=== PATIENT | female | born 1985 | race African-American/Black ===

== ENCOUNTER 2020-06-13 18:22 | Emergency (ER) | payer MEDICAID ==
[~2020-06-13] VITALS: Ht 165.1 cm; Wt 91.0 kg
[2020-06-13 19:10] LABS: CHLORIDE 109 mEq/L (98-107)
[2020-06-13 19:17] LABS: BASOPHILS % 0.4 % (0.0-2.0); EOSINOPHILS % 0.9 % (0.0-5.0); HEMATOCRIT. 35.6 % (36.0-48.0); HEMOGLOBIN. 12.3 g/dL (12.0-16.0); LYMPHOCYTES % 21.5 % (20.0-50.0); MEAN CORPUSCULAR HEMOGLOBIN 33.1 pg (28.0-32.0); MEAN CORPUSCULAR VOLUME 95.5 fL (81.0-99.0); MEAN PLATELET VOLUME 7.9 fl (7.4-10.4); MONOCYTES % 6.2 % (2.0-8.0); PLATELET 310 x1000/uL (130-400); RED BLOOD CELL COUNT 3.73 mill/uL (4.2-5.4); RED CELL DISTRIBUTION WIDTH 12.7 % (11.6-14.6)
[2020-06-13 19:21] LABS: B-HCG QUANTITATIVE 812 mIU/mL (<3)
[2020-06-13] MEDS ORDERED: SODIUM CHLORIDE 0.9% 1,000 ML IV ONE (19:30)
[2020-06-13] MEDS ORDERED: MORPHINE SULFATE 4 MG/ML CPJ (NOT FOR IM USE) IV ONE (19:30)
[2020-06-13] MEDS ORDERED: CEFTRIAXONE 1 G PREMIX 50 ML IV ONE (19:30)
[2020-06-13 20:24] LABS: *BENZODIAZEPINES SCREEN URINE NEGATIVE (NEGATIVE); *COCAINE SCREEN URINE NEGATIVE (NEGATIVE); METHADONE URINE SCREEN NEGATIVE (NEGATIVE); OPIATES URINE SCREEN NEGATIVE (NEGATIVE); PHENCYCLIDINE URINE SCREEN NEGATIVE (NEGATIVE)
[2020-06-13 20:26] LABS: *AMPHETAMINES SCREEN URINE NEGATIVE (NEGATIVE); *BARBITURATES SCREEN URINE NEGATIVE (NEGATIVE)
[2020-06-13] MEDS ORDERED: KETOROLAC 30MG/ML VIAL IV ONE (20:30)
[2020-06-13 20:38] LABS: CANNABINOID URINE SCREEN PRESUMTIVE POSITIVE (NEGATIVE)
[2020-06-13] MEDS ORDERED: CEPH250C2 MT (22:20)
[2020-06-13 22:50] VITALS: BP 113/72
== END 2020-06-13 22:58 | disposition home or self-care (01) ==
LOC: ER 18:22
DX: O03.9 Complete or unspecified spontaneous abortion without complication (principal); O26.891 Other specified pregnancy related conditions, first trimester; O23.41 Unspecified infection of urinary tract in pregnancy, first trimester; F12.10 Cannabis abuse, uncomplicated; Z3A.01 Less than 8 weeks gestation of pregnancy
CPT/HCPCS: 36415; 76801; 76817; 80053; 80305; 81025; 84702; 85025; 86850; 86900; 86901; 88305; 96365; 96375; 99285; J0696; J1885; J2270; J7030

== ENCOUNTER 2020-12-25 12:18 | Emergency (ER) | payer BC, MEDICAID ==
[~2020-12-25] VITALS: Ht 162.6 cm; Wt 91.0 kg
[~2020-12-25 12:18] MED LIST: CEPH250C2 MT
[2020-12-25] MEDS ORDERED: HYDROCODONE/ACETAMINOPHEN 10/325MG TABLET PO ONE (23:15)
[2020-12-26] MEDS ORDERED: MORPHINE SULFATE 4 MG/ML CPJ (NOT FOR IM USE) IV ONE ×2 (00:30→02:00)
[2020-12-26 00:52] LABS: BASOPHILS % 0.5 % (0.0-2.0); HEMOGLOBIN. 12.9 g/dL (12.0-16.0); LYMPHOCYTES % 33.1 % (20.0-50.0); MEAN CORPUSCULAR HEMOGLOBIN 32.2 pg (28.0-32.0); MEAN CORPUSCULAR VOLUME 92.1 fL (81.0-99.0); MEAN PLATELET VOLUME 7.6 fl (7.4-10.4); NEUTROPHILS % 58.4 % (40.0-76.0); PLATELET 340 x1000/uL (130-400); RED BLOOD CELL COUNT 4.02 mill/uL (4.2-5.4)
[2020-12-26 01:09] LABS: CHLORIDE 107 mEq/L (98-107)
[2020-12-26 01:14] LABS: HCG SCREEN NEGATIVE
[2020-12-26] MEDS ORDERED: CYCLOBENZAPRINE 10MG TABLET PO ONE (01:15)
[2020-12-26] MEDS ORDERED: CYCL10TA7 MT (01:23)
[2020-12-26] MEDS ORDERED: IBUP-2029 MT (01:24)
[2020-12-26] MEDS ORDERED: KETOROLAC 30MG/ML VIAL IV ONE (02:00)
[2020-12-26] MEDS ORDERED: IOHEXOL-350 100 ML BOTTLE ONE (02:11)
[2020-12-26 02:50] VITALS: BP 120/83
== END 2020-12-26 06:25 | disposition home or self-care (01) ==
LOC: ER 12:18
DX: M79.642 Pain in left hand (principal); F12.10 Cannabis abuse, uncomplicated; Z98.890 Other specified postprocedural states
CPT/HCPCS: 36415; 70496; 70498; 80048; 84443; 84703; 85025; 93005; 96374; 96375; 96376; 99285; J1885; J2270; Q9967